=== PATIENT | male | born 1980 | race Caucasian/White ===

== ENCOUNTER 2020-07-26 00:57 | Emergency (ER) | payer OTHER, SELFPAY ==
--- NOTE | 2020-07-26 00:45 | DI.RAD_ITS ---
EXAM: XR ABDOMEN FLAT PLATE CLINICAL HISTORY: states he swallowed 3 AAA batteries yesterday TECHNIQUE: COMPARISON: No exams were available for comparison FINDINGS: Two views were obtained. No foreign body identified. Normal bowel gas pattern. No free air identif ied on the upright film. IMPRESSION: Negative examination of the abdomen. No foreign body seen. RADIATION DOSE DELIVERED: Total DLP
[2020-07-26 00:58] VITALS: BP 140/97; PULSE 65; RESP 18; TEMP 36.5; O2SAT 97
--- NOTE | 2020-07-26 01:00 | W.ED.GENAD ---
Discharge Plan Disposition Patient Disposition: [facility] Condition: Stable Discharge Details Clinical Impression: Encounter for medical screening examination ED Provider: Oc Briggs Home Meds and New Rx's Prescriptions: Continued carbamazepine 400 mg Tablet Extended Release 12 Hr 400 mg PO BID RF: 0 buprenorphine HCl 2 mg Tablet, Sublingual 2 mg SUBLINGUAL DAILY RF: 0 Discharge Instructions Additional Instructions: Thankfully there is no presence of batteries in your abdomen. If you notice any worsening of your symptoms, or any new symptoms such as vomiting, diarrhea, fever, chills, shortness of breath, chest pain, numbness, weakness, or fainting , please be evaluated by your medical care provider at the [facility] immediately. Please follow up with your primary care provider as soon as possible for reassessment and reevaluation. As always, it was a pleasure participating in your medical care today. Medical Decision Making 40-year-old male who was recently just placed in retirement presents today for evaluation for assessment of foreign body. While in the intake, the patient stated that yesterday he took 3 AAA batteries that he noted. He does not clearly know how or why he took these. Currently he states that he has pain all over. He regularly takes methadone but has not taken any of his methadone for last day and a half. Aside from mild ache in the abdomen he denies any other complaints. He denies any hematemesis, bloody diarrhea, or other abnormality. He is not very forthcoming for his history. No other complaints at this time. 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 Exam demonstrates no focal abdominal tenderness, no signs of an acute surgical abdomen whatsoever. No significant tenderness whatsoever for that matter. We will get screening abdominal series to evaluate for foreign body presents, however the patient is notably hemodynamically stable and shows no signs of an acute surgical abdomen at this time. I suspect that some of the patient's generalized anxiety and symptomatology is likely secondary to his missing of a Suboxone dose, which will be given at the retirement at 4 AM per the [facility] guards in the [facility] medical provider. We will continue to monitor closely. No indication for labs at this time. 1:45 AM X-ray shows no evidence of foreign body or batteries for that matter. No signs of significant obstruction or other abnormality otherwise. Patient's vital signs remain notably unremarkable and stable. Repeat exam shows no signs of an acute surgical abdomen. I did contact the medical provider at the retirement and informed her of these findings. She did ask that I offer Thorazine gabapentin and carbamazepine which she states that the patient regular medications. I did offer these to the patient here, and he notably refused them. With no evidence of acute life-threatening etiology at this time patient can be discharged. He currently denies any current homicidal or suicidal ideations. He denies any other focal life-threatening complaints at this time. Patient will be discharged back to [facility] facility. Plan was discussed with the medical provider at the retirement, and she agrees. I have extensively reviewed the treatment plan and discharge instructions with the patient. I have addressed all patient concerns at this time. The patient was made aware of what symptoms to monitor for that would warrant a return to the emergency department. Discussed the plan with the patient, they demonstrate verbal understanding and agreement with our assessment and plan at this time. The documentation in this chart was dictated using [employer] dictation software. Please excuse any dictation errors. FINDINGS: Lungs: Lung bases are clear. Gastrointestinal tract: Normal bowel gas pattern. No focal dilation or air-fluid levels to suggest obstruction. Bones/joints: No acute osseous finding. Soft tissues: No radiopaque foreign bodies within the abdomen or pelvis. IMPRESSION: No radiopaque foreign bodies within the abdomen or pelvis. Thank you for allowing us to participate in the care of your patient. Dictated and Authenticated by: Randall Hernandez MD 07/26/2020 1:39 AM Eastern Time ([place] & [place]) HPI General Date/Time Provider Initiated Documentation: 07/26/20 00:59. HPI Narrative: 40-year-old male who was recently just placed in retirement presents today for evaluation for assessment of foreign body. While in the intake, the patient stated that yesterday he took 3 AAA batteries that he noted. He does not clearly know how or why he took these. Currently he states that he has pain all over. He regularly takes methadone but has not taken any of his methadone for last day and a half. Aside from mild ache in the abdomen he denies any other complaints. He denies any hematemesis, bloody diarrhea, or other abnormality. He is not very forthcoming for his history. No other complaints at this time. 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 Related Data Home Medications Medication Instructions Recorded Confirmed buprenorphine HCl 2 mg SUBLINGUAL DAILY 07/26/20 07/26/20 carbamazepine 400 mg PO BID 07/26/20 07/26/20 Allergies Allergy/AdvReac Type Severity Reaction Status Date / Time No Known Allergies Allergy Unverified 07/26/20 01:04 Review of Systems All systems reviewed & are unremarkable except as noted in HPI and below PFSH Medical History (Updated 07/26/20 @ 01:28 by Oc Briggs DO) Seizure disorder Social History Smoking/Tobacco Use Status: Never Smoking risk assessment performed?: Yes Alcohol Intake: current Alcohol Intake frequency: a few times a week Substance use type: former substance user Additional Social history: pt rambling, unwilling to answer Exam Narrative Exam Narrative: 1.Const: Well-nourished, Well-developed, appearing stated age 2.Eyes: PERRL, no conjunctival injection, and symmetrical lids. 3.ENT: Atraumatic external nose and ears. Dry MM. Neck: Symmetric, trachea midline, No thyromegaly. 4.CVS: +S1/S2, No murmurs or gallops. Peripheral pulses 2+ and equal in all extremities. Brisk capillary refill in all extremities. 5.RESP: Unlabored respiratory effort. Clear to auscultation bilaterally. No wheezes rales or rhonchi 6.GI: Soft, Nontender/Nondistended, No hepatosplenomegaly. No guarding or rebound. No acute surgical abdomen whatsoever on exam. No focal tenderness. 7.MSK: Normocephalic/Atraumatic, Extremities w/o deformity or ttp No cyanosis or clubbing, Normal movement of all extremities 8.Skin: Warm, Dry. No rashes or lesions. 9.Neuro: folder seamer automatic II-XII grossly intact. Sensation grossly intact, no focal neurologic deficits. 10.Psych: (AAO) x3. Appropriate mood and affect aside for slightly pressured speech
--- NOTE | 2020-07-26 01:39 | DI.VRAD_ITS ---
PROCEDURE INFORMATION: Exam: XR Abdomen Exam date and time: 07/26/2020 1:00 AM Age: 40 years old Clinical indication: Other: States he swallowed 3 aaa batteries yesterday TECHNIQUE: Imaging protocol: XR of the abdomen. Views: Frontal supine view of the abdomen. 1 View. COMPARISON: No relevant prior studies available. FINDINGS: Lungs: Lung bases are clear. Gastrointestinal tract: Normal bowel gas pattern. No focal dilation or air-fluid levels to suggest obstruction. Bones/joints: No acute osseous finding. Soft tissues: No radiopaque foreign bodies within the abdomen or pelvis. IMPRESSION: No radiopaque foreign bodies within the abdomen or pelvis. Dictated and Authenticated by: Randall Hernandez MD. Ordering:NEVILLE Renae MD
== END 2020-07-26 01:52 | disposition home or self-care (01) ==
PROVIDERS: Emergency Provider Student in an Organized Health Care Education/Training Program
DX: F41.1 Generalized anxiety disorder (principal); F11.20 Opioid dependence, uncomplicated; Z71.1 Person with feared health complaint in whom no diagnosis is made
CPT/HCPCS: 99282; 74018; 99283